=== PATIENT | male | born 1960 | race Caucasian/White ===

== ENCOUNTER → 2017-05-29 | Outpatient (CLI) | payer BC ==
[~2017-05-29] MED LIST: ACC10 PO; CLS20 PO; CMD5 PO; FRRS300 PO; GLUC10007 PO; OMEG10007 PO; OXYSRUNK PO; PRCUNK PO; SIMV40TA2 PO; Savella PO
--- NOTE | 2017-05-29 13:08 | DIAGNOSTIC IMAGING REPORT ---
ABDOMEN 2VIEW W/PA CHEST RTN CLINICAL HISTORY: ABDOMINAL DISTENSION,ABDOMINAL PAIN pain COMPARISON STUDY: No previous studies for comparison. FINDINGS: The soft tissues, psoas shadows, renal outlines and intestinal gas pattern appear normal. There is no evidence for bowel obstruction. There is no evidence for free intraperitoneal air. No abnormal abdominal calcifications are seen. A frontal view of the chest was performed and is unremarkable. IMPRESSION: Normal study. The above report was generated using voice recognition software. It may contain grammatical, syntax or spelling errors. Electronically signed by: Anselmo Walton M.D. 05/29/2017 1:07 PM Dictated Date/Time: 05/29/2017 1:06 PM
== END | disposition home or self-care (01) ==
LOC: C.RAD 12:45
PROVIDERS: ATTEND Nurse Practitioner Family
DX: R14.0 Abdominal distension (gaseous) (principal); R10.9 Unspecified abdominal pain